=== PATIENT | female | born 1975 | race Two or more races ===

== ENCOUNTER 2017-12-05 15:56 | Emergency (ER) | payer OTHER ==
[2017-12-05] MEDS: diphenhydrAMINE INJ 50MG/ML VIAL (J1200) IV (16:46)
[2017-12-05] MEDS: METOCLOPRAMIDE INJ 10MG/2ML VIAL (J2765) IV (16:46)
[2017-12-05] MEDS: KETOROLAC 30 MG/ML VIAL (J1885) IV (16:46)
[2017-12-05] MEDS: NS 1,000 ML IV (16:46)
== END 2017-12-05 17:42 | disposition home or self-care (01) ==
LOC: M ED 15:56
DX: G43.909 Migraine, unspecified, not intractable, without status migrainosus (principal); E03.9 Hypothyroidism, unspecified; F41.9 Anxiety disorder, unspecified; F17.200 Nicotine dependence, unspecified, uncomplicated
CPT/HCPCS: J1200

== ENCOUNTER 2018-01-03 21:00 | Emergency (ER) | payer SELFPAY, OTHER | END 2018-01-03 23:42 | disposition left against medical advice (07) | LOC: M ED 23:42 | DX: Z53.20 Procedure and treatment not carried out because of patient's decision for unspecified reasons (principal) ==